=== PATIENT | male | born 1990 | race African-American/Black ===

== ENCOUNTER 2019-01-01 10:00 | Observation (INO) ==
[2019-01-01] MEDS ORDERED: LIBRIUM PO PRN (13:20)
[2019-01-01] MEDS ORDERED: DULCOLAX PR PRN (13:20)
[2019-01-01] MEDS ORDERED: ZOFRAN IV PRN (13:20)
[2019-01-01] MEDS ORDERED: ZOFRAN ODT PO PRN (13:20)
[2019-01-01] MEDS ORDERED: BENTYL PO PRN (13:20)
[2019-01-01] MEDS ORDERED: SEROQUEL PO PRN (13:20)
[2019-01-01] MEDS ORDERED: TUBERSOL ID ONE (13:20)
[2019-01-01] MEDS ORDERED: TYLENOL PO PRN (13:20)
[2019-01-01] MEDS ORDERED: SINEMET 25/100 PO PRN (13:20)
[2019-01-01] MEDS ORDERED: D5W 1,000 ML IV PRN (13:20)
[2019-01-01] MEDS ORDERED: PHENOBARBITAL IV PRN (13:20)
[2019-01-01] MEDS ORDERED: ATARAX PO PRN (13:20)
[2019-01-01] MEDS ORDERED: ROBAXIN PO PRN (13:20)
[2019-01-01] MEDS ORDERED: IMODIUM PO PRN (13:20)
[2019-01-01] MEDS ORDERED: DESYREL PO PRN (13:20)
[2019-01-01] MEDS ORDERED: NICODERM PATCH TD PRN (13:20)
[2019-01-01] MEDS ORDERED: MOTRIN PO PRN (13:20)
[2019-01-01] MEDS ORDERED: SENOKOT PO PRN (13:20)
[2019-01-01] MEDS ORDERED: MAALOX PLUS LIQUID PO PRN (13:20)
[2019-01-01 13:52] LABS: HEMATOCRIT 37.2 % (42.0-52.0); HEMOGLOBIN 12.7 g/dL (14.0-18.0); MCH 27.7 PG (27-31); MCHC 34.1 g/dL (33-37); MCV 81.2 FL (81-99); MPV 9.2 FL (7.4-10.4); RBC 4.58 XMIL (4.7-6.1); WBC 6.88 X1000 (4.8-10.8)
[2019-01-01] MEDS: SUBOXONE 2 MG/0.5 MG FILM SL SCH (14:02)
[2019-01-01 14:08] LABS: AMYLASE 23 U/L (20-200); INR 2.18; LIPASE 16 U/L (13-60); PROTIME 25.3 Seconds (11.0-16.0)
[2019-01-01 14:11] LABS: AGAP 12; ALBUMIN 4.6 g/dL (3.5-5.0); ALKALINE PHOSPHATASE 56 U/L (32-122); BUN 6 mg/dL (8-22); CALCIUM 9.4 mg/dL (8.8-10.2); CHLORIDE 104 mmol/L (98-107); COSMO 276; CREATININE 0.6 mg/dL (0.7-1.2); ESTIMATED GFR > 60; GLUCOSE 107 mg/dL (70-104); GOT 17 U/L (10-34); GPT 10 U/L (10-44); POTASSIUM 4.3 mmol/L (3.5-5.1); SODIUM 139 mmol/L (136-145); TCO2 23 mmol/L (25-35); TOTAL PROTEIN 7.7 g/dL (6.3-8.3)
[2019-01-01 16:20] LABS: URINE SOURCE VOIDED
[2019-01-01 16:38] LABS: BILIRUBIN URINE NEGATIVE (NEGATIVE); BLOOD URINE NEGATIVE (NEGATIVE); CLARITY CLEAR (CLEAR); COLOR YELLOW; GLUCOSE URINE NEGATIVE (NEGATIVE); KETONE URINE NEGATIVE (NEGATIVE); LEUKOCYTES URINE NEGATIVE (NEGATIVE); NITRITE URINE NEGATIVE (NEGATIVE); PROTEIN URINE NEGATIVE (NEGATIVE); UROBILINOGEN URINE NORMAL
[2019-01-01 16:41] LABS: UR AMPHETAMINES QUAL NONE DETECTED (NONE DETECT); UR BARBITUATES QUAL NONE DETECTED (NONE DETECT); UR BENZODIAZEPIN QUAL NONE DETECTED (NONE DETECT); UR CANNABINOIDS QUAL NONE DETECTED (NONE DETECT); UR COCAINE QUAL NONE DETECTED (NONE DETECT); UR METHADONE QUAL NONE DETECTED (NONE DETECT); UR METHAMPHETAMINE QUAL NONE DETECTED (NONE DETECT); UR OPIATES QUAL NONE DETECTED (NONE DETECT); UR OXYCODONE QUAL PRESUMPTIVE POSITIVE (NONE DETECT); UR PCP QUAL NONE DETECTED (NONE DETECT); UR PROPOXYPHENE QUAL NONE DETECTED (NONE DETECT); UR TCA QUAL NONE DETECTED (NONE DETECT)
--- NOTE | 2019-01-01 20:34 | HISTORY AND PHYSICAL ---
CHIEF COMPLAINT: Nausea and vomiting. HISTORY OF PRESENT ILLNESS: The patient is a 28-year-old male who [facility] secondary to nausea, vomiting, abdominal pain, myalgias, paresthesias. The patient states that he had been doing very well on Suboxone and, in fact, felt that he could stop. He weaned himself off of Suboxone, but started having back pain, and from that point went back to opiate use and abuse. SOCIAL HISTORY: Patient is single. He is unemployed. Lives at home in [place]. PAST MEDICAL HISTORY: 1. Asthma. 2. Hypertension. 3. He has had back surgery with herniated disk in 2009, which is when his substance abuse began. MEDICATIONS: 1. Cymbalta 30 mg. 2. Valsartan 80 mg. ALLERGIES: No known drug allergies. REVIEW OF SYSTEMS: CINA score is 16 secondary to yawning, watery eyes, runny nose, sniffing, frequent changing positions, cold clammy skin. He is having some mild tremors, gooseflesh, having muscle aches, having nausea, abdominal cramping. Denies any fevers, chills, cough, congestion. Denies any dysuria, frequency, urgency, hesitancy. Denies polyuria or polydipsia. Denies any skin rashes, weight loss, or weight gain. SUBSTANCE ABUSE HISTORY: The patient was in [place] in 2013. Stayed sober only for a few months. He was in [facility] in 2017 for 4 months, but was dismissed. He was in [facility] in 2017 and remained sober for a couple of months. He came back in 2018 after relapsing. He started on Suboxone and stayed sober for several months while he was on Suboxone. States that substance abuse has caused financial, legal, emotional, and relationship problems. States he does not want to go back down that path. Notes that he has tried marijuana in the past, but currently does not use. He has tried Xanax, but has not used in the past 3 years. Started opiates at 18 after a back injury and bulging disk. He stayed sober on Suboxone, but once he stopped Suboxone, he has slowly increased back to 7 to 8 oxycodone a day. FAMILY HISTORY: Noncontributory. PHYSICAL EXAMINATION: VITAL SIGNS: Reviewed and stable. GENERAL: Patient is awake, alert, oriented. He is currently in no respiratory distress. HEENT: Normocephalic. NECK: Supple. CARDIOVASCULAR: Regular rate. No murmurs. CHEST: Clear, nonlabored. ABDOMEN: Soft, nondistended, nontender. EXTREMITIES: Moves all extremities. NEUROLOGIC: No focal neurological changes. SKIN: Warm, dry. No rashes. ASSESSMENT: 1. Nausea and vomiting. 2. Abdominal pain. 3. Myalgias. 4. Paresthesias. 5. Paroxysmal sweating. 6. Opiate abuse, withdrawal and stabilization. PLAN: 1. Will admit patient to the hospital. 2. Intravenous fluids as needed. 3. Will start symptomatic medications. 4. Will continue to follow. Hopefully, patient will be able to get back under control. 5. Will place on Suboxone, begin counseling. cc: Salomón Schulz MD
[2019-01-02] MEDS: SUBOXONE 2 MG/0.5 MG FILM SL SCH ×2 (01:29→13:33)
[2019-01-02] MEDS: PROTONIX PO SCH (06:19)
[2019-01-02] MEDS: VITAMIN B-1 PO SCH (09:48)
[2019-01-02] MEDS: DIOVAN PO SCH (09:48)
[2019-01-02] MEDS: CYMBALTA PO SCH (09:48)
[2019-01-02] MEDS: FOLIC ACID PO SCH (09:48)
[2019-01-02] MEDS: THERA M PLUS PO SCH (09:48)
[2019-01-03] MEDS: SUBOXONE 2 MG/0.5 MG FILM SL SCH ×3 (01:48→22:24)
[2019-01-03] MEDS: PROTONIX PO SCH (06:10)
--- NOTE | 2019-01-03 07:26 | PROGRESS NOTE ---
DATE: 01/03/2019 SUBJECTIVE: The patient notes he is feeling a little bit better on the 4 mg of Suboxone. Muscle aches and sweating is better. Still does not feel back to normal. PHYSICAL EXAMINATION: Vital Signs: Reviewed and stable. Temperature 97.8 degrees, pulse 60, respiratory rate 18, and BP 113/73. General: Patient is awake and alert. He is in no current respiratory distress. HEENT: Normocephalic. Neck: Supple. Cardiovascular: Regular rate. No murmurs. Chest: Clear and nonlabored. Abdomen: Soft and nondistended. Extremities: Moves all extremities ASSESSMENT: 1. Nausea and vomiting. 2. Abdominal pain. 3. Myalgias. 4. Paresthesias. 5. Paroxysmal sweating. 6. Opiate abuse withdrawal and stabilization. PLAN: Continue Suboxone 4 mg. Continue to follow. Further orders as needed. cc: Salomón Schulz MD
[2019-01-03] MEDS: THERA M PLUS PO SCH (09:25)
[2019-01-03] MEDS: VITAMIN B-1 PO SCH (09:25)
[2019-01-03] MEDS: DIOVAN PO SCH (09:25)
[2019-01-03] MEDS: CYMBALTA PO SCH (09:25)
[2019-01-03] MEDS: FOLIC ACID PO SCH (09:25)
[2019-01-04] MEDS: THERA M PLUS PO SCH (08:22)
[2019-01-04] MEDS: CYMBALTA PO SCH (08:22)
[2019-01-04] MEDS: FOLIC ACID PO SCH (08:22)
[2019-01-04] MEDS: VITAMIN B-1 PO SCH (08:22)
[2019-01-04] MEDS: DIOVAN PO SCH (08:22)
[2019-01-04] MEDS: SUBOXONE 2 MG/0.5 MG FILM SL SCH (08:23)
[2019-01-04] MEDS: PROTONIX PO SCH (08:24)
--- NOTE | 2019-01-04 09:21 | PROGRESS NOTE ---
DATE: 01/03/2019 SUBJECTIVE: Patient notes that he is starting to feel better. He still worried about going home due to use and abuse. PHYSICAL EXAMINATION: Vital signs: Temperature 97, pulse 77, respiratory 18, BP 128/82. General: Patient is awake, alert. He is feeling much better on the Suboxone. We will continue to follow further orders as needed that he had on admission. HEENT: Normocephalic. Neck: Supple. Cardiovascular: Regular rate. Chest: Clear. Abdomen: Soft. Extremities: Moves all extremities. Neurologic: No focal changes. ASSESSMENT: 1. Nausea and vomiting. 2. Abdominal pain. 3. Myalgias. 4. Paresthesias. 5. Paroxysmal sweating. PLAN: We will continue patient in the hospital tonight. Hopefully, arrangements can be made for further inpatient treatment. cc: Salomón Schulz MD
[2019-01-04 11:53] VITALS: BP 130/84
--- NOTE | 2019-01-05 08:39 | DISCHARGE SUMMARY ---
ADMISSION DATE: 01/01/2019 DISCHARGE DATE: 01/04/2019 DISCHARGE DIAGNOSES: 1. Nausea and vomiting. 2. Abdominal pain. 3. Myalgias. 4. Paresthesias. 5. Paroxysmal sweating. 6. Anxiety and depression. 7. Opiate abuse, withdrawal, and stabilization. 8. Asthma. CONSULTATIONS: None. PROCEDURES: None. BRIEF HOSPITAL COURSE: Patient is a 28-year-old male who presented to [facility] secondary to nausea, vomiting, abdominal pain, myalgias, and paresthesias. He was placed on Suboxone. We attempted to wean but this was not successful. He therefore will be discharged home on Suboxone. His hospital course was prolonged to allow him time to get into a long-term treatment facility, which has been arranged. cc: Salomón Schulz MD
== END 2019-01-04 12:00 | disposition home or self-care (01) ==
LOC: INTOOBSV 11:02 → P.MEDSURG 11:02 → P.DIRADM 11:02
PROVIDERS: ADMIT Family Medicine; ATTEND Family Medicine
CPT/HCPCS: 80053; 80104; 80301; 80305; 80307; 80320; 82055; 82150; 83690; 85027; 85610; 86580; A9270; G0431; G0434; G0477; G0480; G6040